=== PATIENT | female | born 1990 | race Hispanic/Latino ===

== ENCOUNTER 2019-02-09 17:45 | Emergency (ER) | payer BC, OTHER ==
[2019-02-09] MEDS ORDERED: NA CHLORIDE 0.9% 1,000 ML ONE ×2 (19:01→21:22)
[2019-02-09 19:02] LABS: Absolute Lymphocytes (CBC) 1.7 K/uL (0.7-4.9); Absolute Monocytes 0.6 K/uL (0.1-1.3); Absolute Neutrophil 6.3 K/uL (1.8-8.0); Basophils % 0.3 % (0-1.3); Eosinophils % 0.4 % (0-4.4); Hematocrit 41.5 % (36.0-45.0); Lymphocytes % 19.3 % (15.3-44.8); MPV 8.6 fL (7.6-11.3); Monocytes % 6.8 % (3.3-12.3); RBC Red Blood Cell Count 4.78 M/uL (3.86-4.86)
[2019-02-09 19:12] LABS: Urine Blood 3+ (NEG); Urine Glucose TRACE (NEG); Urine Protein 1+ (NEG)
[2019-02-09 19:24] LABS: Urine Bacteria <20 /HPF (<20); Urine Culture Reflex Order NOT NEEDED; Urine Mucus 3+ /HPF (NONE SEEN); Urine RBC <5 /HPF (NONE SEEN)
[2019-02-09 19:37] LABS: BUN Blood Urea Nitrogen 11 mg/dL (7-18); Bicarbonate 25 mmol/L (21-32); Glucose Level 92 mg/dL (74-106); HCG, Quantitative 69921 mIU/mL (1-3); Sodium Level 138 mmol/L (136-145)
[2019-02-09 19:39] LABS: Potassium 2.9 mmol/L (3.5-5.1)
[2019-02-09] MEDS ORDERED: POTASSIUM 25 MEQ EFFERV TAB ONE ×2 (19:56→23:06)
--- NOTE | 2019-02-09 20:45 | ER ---
Nurse's Notes [facility] Name: Cynthia Villarreal Age: 28 yrs Sex: Female : 1990 Arrival Date: 02/09/2019 Time: 17:47 Bed 15 Private MD: Diagnosis: Nausea and vomiting; related conditions, unspecified, first trimester;Hypokalemia Presentation: 02/09 17:48 Presenting complaint: Patient states: LMP- 12/14/18; im 8 weeks yesterday; i hj started having vaginal bleed today and been vomiting; reports nausea; denies fever and chills;. Transition of care: patient was not received from another setting of care. Onset of symptoms was February 09, 2019. Risk Assessment: Do you want to hurt yourself or someone else? Patient reports no desire to harm self or others. Initial Sepsis Screen: Does the patient meet any 2 criteria? No. Patient's initial sepsis screen is negative. Does the patient have a suspected source of infection? No. Patient's initial sepsis screen is negative. Care prior to arrival: None. 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 Denies injuries from another. Nutritional bp screening: No deficits noted. Tuberculosis screening: No symptoms or risk factors identified. Fall Risk None identified. Assessment: 18:00 General: Appears in no apparent distress. comfortable, Behavior is calm, cooperative, bp appropriate for age. Pain: Denies pain. Neuro: Level of Consciousness is awake, alert, obeys commands, Oriented to person, place, time, situation, Appropriate for age. Cardiovascular: No deficits noted. Respiratory: Airway is patent Respiratory effort is even, unlabored, Respiratory pattern is regular, symmetrical. GI: No signs and/or symptoms were reported involving the gastrointestinal system. : Reports vaginal bleeding that is. EENT: No deficits noted. Derm: No deficits noted. Musculoskeletal: Circulation, motion, and sensation intact. Range of motion: intact in all extremities. 19:05 Reassessment: Patient appears in no apparent distress at this time. Patient and/or jb4 family updated on plan of care and expected duration. Pain level reassessed. Patient is alert, oriented x 3, equal unlabored respirations, skin warm/dry/pink. family at the bedside. 20:00 Reassessment: Patient appears in no apparent distress at this time. Patient and/or jb4 family updated on plan of care and expected duration. Pain level reassessed. Patient is alert, oriented x 3, equal unlabored respirations, skin warm/dry/pink. 21:00 Reassessment: Patient appears in no apparent distress at this time. Patient and/or jb4 family updated on plan of care and expected duration. Pain level reassessed. Patient is alert, oriented x 3, equal unlabored respirations, skin warm/dry/pink. 21:05 Reassessment: Pt vomited after oral potassium was given, failed PO challenged, see [facility] maria guadalupe for orders. 22:00 Reassessment: Patient appears in no apparent distress at this time. Patient and/or jb4 family updated on plan of care and expected duration. Pain level reassessed. Patient is alert, oriented x 3, equal unlabored respirations, skin warm/dry/pink. 23:17 Reassessment: Patient appears in no apparent distress at this time. Patient and/or jb4 family updated on plan of care and expected duration. Pain level reassessed. Patient is alert, oriented x 3, equal unlabored respirations, skin warm/dry/pink. Patient states feeling better. Vital Signs: 17:50 BP 121 / 83; Pulse 80; Resp 18; Temp 98.1(O); Pulse Ox 98% on R/A; Weight 58.97 kg; hj Height 5 ft. 0 in. (152.40 cm); Pain 0/10; 19:15 BP 103 / 64; Pulse 67; Resp 16; Pulse Ox 100% ; jb4 20:00 BP 109 / 68; Pulse 91; Resp 16; Pulse Ox 100% on R/A; jb4 21:00 BP 114 / 67; Pulse 99; Resp 16; Pulse Ox 100% on R/A; jb4 22:00 BP 102 / 75; Pulse 73; Resp 16; Pulse Ox 100% on R/A; jb4 23:00 BP 100 / 80; Pulse 86; Resp 16; Pulse Ox 99% on R/A; jb4 17:50 Body Mass Index 25.39 (58.97 kg, 152.40 cm) ED Course: 17:47 Patient arrived in ED. as 17:49 Triage completed. hj 17:51 Arm band placed on right wrist. hj 18:00 Patient has correct armband on for positive identification. Bed in low position. Call bp light in reach. Side rails up X2. Adult w/ patient. 18:18 Zev Foster PA is PHCP. cp 18:18 Anuj Davalos MD is Attending Physician. cp 18:24 Jakob Hannah, KASI is Primary Nurse. bp 18:30 Inserted saline lock: 20 gauge in right antecubital area, using aseptic technique. bp Blood collected. 20:27 Primary Nurse role handed off by Jakob Hannah, RN ed1 20:30 Matt Kinsey, RN is Primary Nurse. jb4 20:31 Ultrasound completed. Patient tolerated well. Notified STAGECRAFT PROFESSOR/REAGAN nuñez. sg3 20:34 US Transvaginal Ob In Process Unspecified. EDMS 23:00 No provider procedures requiring assistance completed. IV discontinued, intact, jb4 bleeding controlled. Administered Medications: 18:45 Drug: NS 0.9% 1000 ml Route: IV; Rate: 1 bolus; Site: right antecubital; bp 19:55 Drug: Potassium Effervescent Tablet 50 mEq Route: PO; jb4 22:13 Follow up: Response: Vomiting increased; Vomiting increased, pt vomited after jb4 administration. 19:55 Drug: Potassium Effervescent Tablet 50 mEq Route: PO; jb4 22:12 Follow up: Response: Vomiting increased; Vomiting increased, pt vomited after jb4 administration. 21:10 Drug: Zofran 4 mg Route: IVP; Site: right antecubital; jb4 22:12 Follow up: Response: No adverse reaction; Nausea is decreased jb4 21:15 Drug: Potassium Chloride 20 mEq Route: IV; Rate: calculated rate; Site: right jb4 antecubital; 22:19 Follow up: Response: No adverse reaction; IV Status: Completed infusion jb4 21:15 Drug: NS 0.9% 1000 ml Route: IV; Rate: 1 bolus; Site: right antecubital; jb4 22:20 Follow up: Response: No adverse reaction; IV Status: Completed infusion; IV Intake: jb4 1000ml 22:59 Drug: Potassium Effervescent Tablet 50 mEq Route: PO; jb4 23:15 Follow up: Response: No adverse reaction jb4 Intake: 22:20 IV: 1000ml; Total: 1000ml. jb4 Outcome: 20:44 Discharge ordered by MD. cp 23:02 Discharge ordered by MD. cp 23:19 Discharged to home ambulatory, with family. jb4 23:19 Condition: stable 23:19 Discharge instructions given to patient, family, Instructed on discharge instructions, follow up and referral plans. medication usage, Demonstrated understanding of instructions, follow-up care, medications, Prescriptions given X 1. 23:19 Patient left the ED. jb4 Signatures: Dispatcher [employer] EDMS Gwendolyn Rutherford Erika, RN RN ed1 Kendell Olson RN RN Zev Yost PA PA cp Bryson, James, RN RN jb4 Jakob Hannah RN RN Nataliia Nogueira sg3 Corrections: (The following items were deleted from the chart) 17:52 17:50 Pulse 80bpm; Resp 18bpm; Pulse Ox 98% RA; Temp 98.1F Oral; 58.97 kg; Height 5 ft. hj 0 in.; BMI: 25.3; Pain 0/10; hj
--- NOTE | 2019-02-09 20:45 | EDPHYS ---
Physician Documentation [facility] Name: Cynthia Villarreal Age: 28 yrs Sex: Female : 1990 Arrival Date: 02/09/2019 Time: 17:47 Bed 15 Private MD: ED Physician Anuj Davalos HPI: 02/09 18:30 This 28 yrs old Female presents to ER via Ambulatory with complaints of cp Vaginal Bleeding, + Preg <12wks. 18:30 The patient presents to the emergency department with nausea and vomiting, that started cp today, and is intermittent, described as bilious, vaginal bleeding, that is light, started yesterday, now resolved. The estimated gestational age is 8 weeks. course: care: private OB physician, Leakage of Fluid: none appreciated, Ultrasound: the patient had an ultrasound. Associated signs and symptoms: Pertinent negatives: abdominal pain, diarrhea, dysuria, fever. 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 cp 18:40 Eyes: Negative for injury, pain, redness, and discharge. cp 18:40 ENT: Negative for drainage from ear(s), ear pain, sore throat, difficulty swallowing, difficulty handling secretions. 18:40 Cardiovascular: Negative for chest pain, edema, palpitations. 18:40 Respiratory: Negative for cough, shortness of breath, wheezing. 18:40 Abdomen/GI: Positive for nausea and vomiting, Negative for abdominal pain, diarrhea, constipation, hematemesis, black/tarry stool, rectal bleeding. 18:40 Back: Negative for pain at rest, pain with movement. 18:40 : Positive for vaginal bleeding, Negative for urinary symptoms, pelvic pain, flank pain. 18:40 Skin: Negative for rash. 18:40 Neuro: Negative for altered mental status, headache, numbness, tingling, weakness. 18:40 All other systems are negative. Exam: 18:45 Constitutional: The patient appears in no acute distress, alert, awake, non-toxic, well cp developed, well nourished. 18:45 Head/Face: Normocephalic, atraumatic. Eyes: Pupils equal round and reactive to light, cp extra-ocular motions intact. Lids and lashes normal. Conjunctiva and sclera are non-icteric and not injected. Cornea within normal limits. Periorbital areas with no swelling, redness, or edema. ENT: Nares patent. No nasal discharge, no septal abnormalities noted. Tympanic membranes are normal and external auditory canals are clear. Oropharynx with no redness, swelling, or masses, exudates, or evidence of obstruction, uvula midline. Mucous membranes moist. Chest/axilla: Normal chest wall appearance and motion. Nontender with no deformity. No lesions are appreciated. 18:45 Cardiovascular: Rate: normal, Rhythm: regular. 18:45 Respiratory: the patient does not display signs of respiratory distress, Respirations: normal, no use of accessory muscles, no retractions, no splinting, no tachypnea, labored breathing, is not present, Breath sounds: are clear throughout, no decreased breath sounds, no stridor, no wheezing. 18:45 Abdomen/GI: Inspection: abdomen appears normal, Bowel sounds: active, all quadrants, Palpation: abdomen is soft and non-tender, in all quadrants. 18:45 Back: CVA tenderness, is absent. 18:45 Skin: no rash present. 18:45 Neuro: Orientation: to person, place \T\ time. Mentation: is normal, Cerebellar function: is grossly normal, Motor: moves all fours, strength is normal. 20:35 ECG was reviewed by the Attending Physician. cp Vital Signs: 17:50 BP 121 / 83; Pulse 80; Resp 18; Temp 98.1(O); Pulse Ox 98% on R/A; Weight 58.97 kg; hj Height 5 ft. 0 in. (152.40 cm); Pain 0/10; 19:15 BP 103 / 64; Pulse 67; Resp 16; Pulse Ox 100% ; jb4 20:00 BP 109 / 68; Pulse 91; Resp 16; Pulse Ox 100% on R/A; jb4 21:00 BP 114 / 67; Pulse 99; Resp 16; Pulse Ox 100% on R/A; jb4 22:00 BP 102 / 75; Pulse 73; Resp 16; Pulse Ox 100% on R/A; jb4 23:00 BP 100 / 80; Pulse 86; Resp 16; Pulse Ox 99% on R/A; jb4 17:50 Body Mass Index 25.39 (58.97 kg, 152.40 cm) MDM: 18:24 Patient medically screened. cp 19:00 Differential diagnosis: STD, dehydration, electrolyte abnormality, UTI. cp 23:00 Data reviewed: vital signs, nurses notes, lab test result(s), EKG, radiologic studies, cp ultrasound. 23:00 Counseling: I had a detailed discussion with the patient and/or guardian regarding: the cp historical points, exam findings, and any diagnostic results supporting the discharge/admit diagnosis, lab results, radiology results, the need for outpatient follow up, an OB/Gyne specialist, to return to the emergency department if symptoms worsen or persist or if there are any questions or concerns that arise at home. Response to treatment: the patient's symptoms have markedly improved after treatment, VSS. Nausea markedly improved and potassium replaced. Will discharge to home for continued monitoring. 02/09 18:28 Order name: Quantitative Hcg; Complete Time: 19:54 cp 02/09 18:28 Order name: Abo/rh Typing; Complete Time: 19:39 cp 02/09 18:28 Order name: Basic Metabolic Panel; Complete Time: 19:54 cp 02/09 19:54 Interpretation: Normal except: K 2.9. cp 02/09 18:28 Order name: CBC with Diff; Complete Time: 19:39 cp 02/09 18:28 Order name: Urine Microscopic Only; Complete Time: 19:39 cp 02/09 18:51 Order name: Urine Dipstick--Ancillary (enter results); Complete Time: 19:39 eb 02/09 18:51 Order name: Urine --Ancillary (enter results); Complete Time: 19:39 eb 02/09 19:08 Order name: US Transvaginal Ob cp 02/09 20:48 Order name: ABO/RH no charge EDMS 02/09 22:19 Order name: Potassium jb4 02/09 17:52 Order name: Urine Dipstick-Ancillary (obtain specimen); Complete Time: 18:53 02/09 17:52 Order name: Urine Test (obtain specimen); Complete Time: 18:53 02/09 18:28 Order name: Urine Test (obtain specimen); Complete Time: 18:53 cp 02/09 18:28 Order name: IV Saline Lock; Complete Time: 18:53 cp 02/09 18:28 Order name: Labs collected and sent; Complete Time: 18:53 cp 02/09 18:28 Order name: NPO; Complete Time: 18:53 cp 02/09 19:40 Order name: EKG - Nurse/Tech; Complete Time: 20:30 cp 02/09 20:26 Order name: PO challenge; Complete Time: 20:30 cp EC:35 Rate is 85 beats/min. Rhythm is regular. ND interval is normal. QRS interval is normal. cp QT interval is normal. Interpreted by me. Reviewed by me. Administered Medications: 18:45 Drug: NS 0.9% 1000 ml Route: IV; Rate: 1 bolus; Site: right antecubital; bp 19:55 Drug: Potassium Effervescent Tablet 50 mEq Route: PO; jb4 22:13 Follow up: Response: Vomiting increased; Vomiting increased, pt vomited after jb4 administration. 19:55 Drug: Potassium Effervescent Tablet 50 mEq Route: PO; jb4 22:12 Follow up: Response: Vomiting increased; Vomiting increased, pt vomited after jb4 administration. 21:10 Drug: Zofran 4 mg Route: IVP; Site: right antecubital; jb4 22:12 Follow up: Response: No adverse reaction; Nausea is decreased jb4 21:15 Drug: Potassium Chloride 20 mEq Route: IV; Rate: calculated rate; Site: right jb4 antecubital; 22:19 Follow up: Response: No adverse reaction; IV Status: Completed infusion jb4 21:15 Drug: NS 0.9% 1000 ml Route: IV; Rate: 1 bolus; Site: right antecubital; jb4 22:20 Follow up: Response: No adverse reaction; IV Status: Completed infusion; IV Intake: jb4 1000ml 22:59 Drug: Potassium Effervescent Tablet 50 mEq Route: PO; jb4 23:15 Follow up: Response: No adverse reaction jb4 Disposition: 02/09/19 23:02 Discharged to Home. Impression: Nausea and vomiting, related conditions, unspecified, first trimester, Hypokalemia. - Condition is Stable. - Discharge Instructions: Abdominal Pain During , Potassium Content of Foods, Nausea and Vomiting, Adult, Hypokalemia. - Prescriptions for Diclegis 10- 10 mg Oral tablet,delayed release (DR/EC) - take 1 tablet by ORAL route as directed As needed 1 tablet before meals and 2 tablets at bedtime; 30 tablet. - Medication Reconciliation Form, Thank You Letter, Antibiotic Education, Prescription Opioid Use form. - Follow up: Private Physician; When: 2 - 3 days; Reason: Recheck today's complaints. - Problem is new. - Symptoms have improved. Addendum: 02/12/2019 07:25 Co-signature as Attending Physician, Anuj Davalos MD I agree with the assessment and k dr plan of care. Signatures: Dispatcher [employer] EDMS Anuj Davalos MD MD [facility] Kendell Olson RN RN hj Zev Foster PA PA cp Matt Kinsey, RN RN jb4 aJkob Hannah RN RN bp Corrections: (The following items were deleted from the chart) 02/09 20:48 20:44 02/09/2019 20:44 Discharged to Home. Impression: related conditions, cp unspecified, first trimester; Nausea and vomiting. Condition is Stable. Forms are Medication Reconciliation Form, Thank You Letter, Antibiotic Education, Prescription Opioid Use. Follow up: Private Physician; When: 2 - 3 days; Reason: Recheck today's complaints. Problem is new. Symptoms have improved. cp 20:58 20:48 02/09/2019 20:44 Discharged to Home. Impression: related conditions, cp unspecified, first trimester; Nausea and vomiting; Hypokalemia. Condition is Stable. Discharge Instructions: Abdominal Pain During , Dehydration, Adult, Nausea and Vomiting, Adult, Vaginal Bleeding During , First Trimester. Prescriptions for Diclegis 10-10 mg Oral tablet,delayed release (DR/EC) - take 1 tablet by ORAL route 3 times per day As needed 1 tablet before meals and 2 tablets at bedtime; 30 tablet. and Forms are Medication Reconciliation Form, Thank You Letter, Antibiotic Education, Prescription Opioid Use. Follow up: Private Physician; When: 2 - 3 days; Reason: Recheck today's complaints. Problem is new. Symptoms have improved. cp 23:03 23:02 02/09/2019 23:02 Discharged to Home. Impression: Nausea and vomiting; cp related conditions, unspecified, first trimester. Condition is Stable. Prescriptions for Diclegis 10-10 mg Oral tablet,delayed release (DR/EC) - take 1 tablet by ORAL route 3 times per day As needed 1 tablet before meals and 2 tablets at bedtime; 30 tablet. and Forms are Medication Reconciliation Form, Thank You Letter, Antibiotic Education, Prescription Opioid Use. Follow up: Private Physician; When: 2 - 3 days; Reason: Recheck today's complaints. Problem is new. Symptoms have improved. cp 23:19 23:03 02/09/2019 23:02 Discharged to Home. Impression: Nausea and vomiting; jb4 related conditions, unspecified, first trimester; Hypokalemia. Condition is Stable. Discharge Instructions: Abdominal Pain During , Nausea and Vomiting, Adult, Hypokalemia. Prescriptions for Diclegis 10-10 mg Oral tablet,delayed release (DR/EC) - take 1 tablet by ORAL route 3 times per day As needed 1 tablet before meals and 2 tablets at bedtime; 30 tablet, Diclegis 10-10 mg Oral tablet,delayed release (DR/EC) - take 1 tablet by ORAL route as directed As needed 1 tablet before meals and 2 tablets at bedtime; 30 tablet. and Forms are Medication Reconciliation Form, Thank You Letter, Antibiotic Education, Prescription Opioid Use. Follow up: Private Physician; When: 2 - 3 days; Reason: Recheck today's complaints. Problem is new. Symptoms have improved. cp
--- NOTE | 2019-02-09 20:58 | RAD REPORT ---
EXAM DESCRIPTION: US - Transvaginal OB - 02/09/2019 8:34 pm CLINICAL HISTORY: , vaginal bleeding COMPARISON: None. FINDINGS: A single intrauterine gestation is identified. Heart rate is 169 bpm. Small subchorionic h emorrhages present measuring 2.5 x 0.8 by 1.2 cm. This is not felt to be clinically significant at th is size but can be monitored as warranted. Cervical canal is closed. Gestational sac is normal in con figuration. Yolk sac is identified. Garnett-rump length measurement corresponds to a 8 W 0 D age. EPHRAIM i s 09/21/2019. A 14 millimeter anechoic left ovarian cyst is present. No suspicious ovarian or adnexal findings. No fluid, blood or other abnormality in the cul de sac. IMPRESSION: Single 8 W 0 D intrauterine gestation. EPHRAIM is 09/21/2019. A small subchorionic hemorrhage is present. Cervical canal is closed. Normal heart rate of 167 BPM.
[2019-02-09] MEDS ORDERED: ONDANSETRON 4 MG/2 ML VIAL ONE (21:21)
[2019-02-09] MEDS ORDERED: KCL 20 MEQ/100 mL IVPB 20 MEQ/100 ML BAG IV ONE (21:22)
--- NOTE | 2019-02-13 11:30 | EKG ---
Test Date: 2019-02-09 Test Time: 20:28:12 Director Of Archives: BRAYDON MEASUREMENT RESULTS: Intervals: Rate: 85 RI: 140 QRSD: 76 QT: 354 QTc: 421 Capron: P: 45 RI: 140 QRS: 9 T: 37 INTERPRETIVE STATEMENTS: Normal sinus rhythm with sinus arrhythmia Low voltage QRS Borderline ECG No previous ECG available for comparison Electronically Signed On 02-10-19 16:44:27 CDT by Miky Brown
== END 2019-02-09 23:19 | disposition home or self-care (01) ==
LOC: ER 17:45
DX: O20.9 Hemorrhage in early pregnancy, unspecified (principal); O21.9 Vomiting of pregnancy, unspecified; O26.891 Other specified pregnancy related conditions, first trimester; E87.6 Hypokalemia; Z3A.08 8 weeks gestation of pregnancy
CPT/HCPCS: 36415; 76817; 80048; 81003; 81015; 81025; 84132; 84702; 85025; 86900; 86901; 93005; 96365; 96375; 99284; J2405; J7030

== ENCOUNTER 2019-02-25 01:23 | Emergency (ER) | payer MEDICAID, OTHER ==
[2019-02-25 02:20] LABS: Absolute Lymphocytes (CBC) 1.3 K/uL (0.7-4.9); Absolute Monocytes 0.4 K/uL (0.1-1.3); Absolute Neutrophil 6.3 K/uL (1.8-8.0); Basophils % 0.5 % (0-1.3); Eosinophils % 0.4 % (0-4.4); Hematocrit 38.4 % (36.0-45.0); Lymphocytes % 16.5 % (15.3-44.8); MPV 8.4 fL (7.6-11.3); Monocytes % 4.5 % (3.3-12.3)
[2019-02-25 02:36] LABS: BUN Blood Urea Nitrogen 10 mg/dL (7-18); Bicarbonate 23 mmol/L (21-32); Glucose Level 91 mg/dL (74-106); Potassium 3.4 mmol/L (3.5-5.1); Sodium Level 140 mmol/L (136-145)
[2019-02-25] MEDS ORDERED: D5 0.9 NS 1,000 ML IV ONE ×2 (02:40→04:00)
[2019-02-25 03:58] LABS: Urine Bacteria <20 /HPF (<20); Urine Culture Reflex Order NOT NEEDED; Urine RBC NONE SEEN /HPF (NONE SEEN)
[2019-02-25 04:01] LABS: Urine Blood NEGATIVE (NEG); Urine Glucose 2+ (NEG); Urine Protein NEGATIVE (NEG); Urine pH 5.5 (5.0-7.0)
--- NOTE | 2019-02-25 04:08 | ER ---
Nurse's Notes [facility] Name: Cynthia Villarreal Age: 28 yrs Sex: Female : 1990 Arrival Date: 02/25/2019 Time: 01:25 Bed 13 Private MD: Diagnosis: Hyperemesis gravidarum with metabolic disturbance Presentation: 02/25 01:42 Presenting complaint: Patient states: I started vomiting today at 1245 pm. I am feeling jb4 dehydrated and have not been able to keep anything down. Transition of care: patient was not received from another setting of care. Onset of symptoms was February 24, 2019. Risk Assessment: Do you want to hurt yourself or someone else? Patient reports no desire to harm self or others. Initial Sepsis Screen: Does the patient meet any 2 criteria? No. Patient's initial sepsis screen is negative. Does the patient have a suspected source of infection? No. Patient's initial sepsis screen is negative. Care prior to arrival: None. 01:42 Method Of Arrival: Ambulatory jb4 01:42 Acuity: JEFFREY 3 jb4 Triage Assessment: 01:42 General: Appears in no apparent distress. comfortable, Behavior is calm, cooperative, jb4 appropriate for age. Pain: Denies pain. EENT: No signs and/or symptoms were reported regarding the EENT system. Neuro: Level of Consciousness is awake, alert, obeys commands, Oriented to person, place, time, situation. Cardiovascular: Patient's skin is warm and dry. Respiratory: Airway is patent Respiratory effort is even, unlabored, Respiratory pattern is regular, symmetrical. GI: Reports nausea, vomiting. : No signs and/or symptoms were reported regarding the genitourinary system. Derm: Skin is intact, Skin is pink, warm \T\ dry. Musculoskeletal: Circulation, motion, and sensation intact. 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 - Social history:: Smoking status: Patient/guardian denies using tobacco, Patient/guardian denies using alcohol. - Ebola Screening: : No symptoms or risks identified at this time. Screenin:26 Abuse screen: Denies threats or abuse. Denies injuries from another. Nutritional cc3 screening: No deficits noted. Tuberculosis screening: No symptoms or risk factors identified. Fall Risk Ambulatory Aid- None/Bed Rest/Nurse Assist (0 pts). Gait- Normal/Bed Rest/Wheelchair (0 pts) Mental Status- Oriented to own ability (0 pts). Assessment: 03:26 Reassessment: Patient appears in no apparent distress at this time. Patient and/or cc3 family updated on plan of care and expected duration. Pain level reassessed. Patient is alert, oriented x 3, equal unlabored respirations, skin warm/dry/pink. Received this female 10 weeks patient from [facility]AS[facility] Rahman as a case of dehydration, with IV cannula gauge 20 at the left ACV saline locked. 04:07 Reassessment: Patient was ordered for discharge home after the ongoing IV fluids. cc3 04:16 Reassessment: Patient appears in no apparent distress at this time. Patient and/or cc3 family updated on plan of care and expected duration. Pain level reassessed. Patient is alert, oriented x 3, equal unlabored respirations, skin warm/dry/pink. 05:10 Reassessment: Patient appears in no apparent distress at this time. Patient and/or cc3 family updated on plan of care and expected duration. Pain level reassessed. Patient is alert, oriented x 3, equal unlabored respirations, skin warm/dry/pink. IV fluids completed, patient discharged home with prescription given. IV cannula removed and patient left ER vitally stable and ambulatory with her . Patient denies pain at this time. Patient states feeling better. Patient states symptoms have improved. Vital Signs: 01:42 BP 112 / 75; Pulse 72; Resp 16; Temp 98.7(O); Pulse Ox 99% on R/A; Weight 60.33 kg (R); jb4 Height 5 ft. 0 in. (152.40 cm) (R); Pain 0/10; 03:30 BP 101 / 59; Pulse 80; Resp 17 S; Pulse Ox 100% on R/A; cc3 04:17 BP 112 / 66; Pulse 65; Resp 17 S; Pulse Ox 100% on R/A; cc3 05:00 BP 101 / 64; Pulse 70; Resp 15 S; Pulse Ox 100% on R/A; cc3 01:42 Body Mass Index 25.97 (60.33 kg, 152.40 cm) jb4 ED Course: 01:25 Patient arrived in ED. 01:31 Landon Landry MD is Attending Physician. 01:41 Matt Kinsey RN is Primary Nurse. jb4 01:42 Arm band placed on left wrist. jb4 01:43 Triage completed. jb4 03:26 Patient has correct armband on for positive identification. Placed in gown. Bed in low cc3 position. Side rails up X 1. Pulse ox on. NIBP on. 05:10 No provider procedures requiring assistance completed. cc3 05:10 IV discontinued, intact, bleeding controlled, No redness/swelling at site. Pressure cc3 dressing applied. Administered Medications: 02:31 Drug: D5-NS 1000 ml Route: IV; Rate: bolus; Site: left antecubital; jb4 03:25 Follow up: Response: No adverse reaction; IV Status: Completed infusion; IV Intake: cc3 1000ml 03:50 Drug: D5-NS 1000 ml Route: IV; Rate: bolus; Site: left antecubital; cc3 05:05 Follow up: Response: No adverse reaction; IV Status: Completed infusion; IV Intake: cc3 1000ml Intake: 03:25 IV: 1000ml; Total: 1000ml. cc3 05:05 IV: 1000ml; Total: 2000ml. cc3 Outcome: 04:07 Discharge ordered by . 05:10 Discharged to home ambulatory, with family. cc3 05:10 Condition: stable 05:10 Discharge instructions given to patient, Instructed on discharge instructions, follow up and referral plans. medication usage, Demonstrated understanding of instructions, follow-up care, medications, Prescriptions given X 1. 05:12 Patient left the ED. cc3 Signatures: Stefany Zavaleta Matt Kinsey, KASI RN jb4 Landon Landry MD MD gs Cordel, Charlene cc3
--- NOTE | 2019-02-25 04:08 | EDPHYS ---
Physician Documentation [facility] Name: Cynthia Villarreal Age: 28 yrs Sex: Female : 1990 Arrival Date: 02/25/2019 Time: 01:25 Bed 13 Private MD: ED Physician Landon Landry HPI: 02/25 04:05 This 28 yrs old Female presents to ER via Ambulatory with complaints of gs dehydrated 10 weeks preg. 04:05 The patient presents to the emergency department with nausea, vomiting. Onset: The gs symptoms/episode began/occurred 2 month(s) ago. Possible causes: . The symptoms are aggravated by nothing. The symptoms are alleviated by nothing. Associated signs and symptoms: Pertinent negatives: abdominal pain, dysuria, fever. Severity of symptoms: At their worst the symptoms were severe in the emergency department the symptoms are unchanged. The patient has experienced similar episodes in the past, multiple times. The patient has not recently seen a physician. 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 - Social history:: Smoking status: Patient/guardian denies using tobacco, Patient/guardian denies using alcohol. - Ebola Screening: : No symptoms or risks identified at this time. ROS: 04:05 All other systems are negative. gs Exam: 04:05 Head/Face: Normocephalic, atraumatic. Eyes: Pupils equal round and reactive to light, gs extra-ocular motions intact. Lids and lashes normal. Conjunctiva and sclera are non-icteric and not injected. Cornea within normal limits. Periorbital areas with no swelling, redness, or edema. ENT: Nares patent. No nasal discharge, no septal abnormalities noted. Tympanic membranes are normal and external auditory canals are clear. Oropharynx with no redness, swelling, or masses, exudates, or evidence of obstruction, uvula midline. Mucous membranes moist. Neck: Trachea midline, no thyromegaly or masses palpated, and no cervical lymphadenopathy. Supple, full range of motion without nuchal rigidity, or vertebral point tenderness. No Meningismus. Chest/axilla: Normal chest wall appearance and motion. Nontender with no deformity. No lesions are appreciated. Cardiovascular: Regular rate and rhythm with a normal S1 and S2. No gallops, murmurs, or rubs. Normal PMI, no JVD. No pulse deficits. Respiratory: Lungs have equal breath sounds bilaterally, clear to auscultation and percussion. No rales, rhonchi or wheezes noted. No increased work of breathing, no retractions or nasal flaring. Abdomen/GI: Soft, non-tender, with normal bowel sounds. No distension or tympany. No guarding or rebound. No evidence of tenderness throughout. Back: No spinal tenderness. No costovertebral tenderness. Full range of motion. Skin: Warm, dry with normal turgor. Normal color with no rashes, no lesions, and no evidence of cellulitis. MS/ Extremity: Pulses equal, no cyanosis. Neurovascular intact. Full, normal range of motion. Neuro: Awake and alert, GCS 15, oriented to person, place, time, and situation. Cranial nerves II-XII grossly intact. Motor strength 5/5 in all extremities. Sensory grossly intact. Cerebellar exam normal. Normal gait. 04:05 Constitutional: The patient appears alert, awake, uncomfortable. Vital Signs: 01:42 BP 112 / 75; Pulse 72; Resp 16; Temp 98.7(O); Pulse Ox 99% on R/A; Weight 60.33 kg (R); jb4 Height 5 ft. 0 in. (152.40 cm) (R); Pain 0/10; 03:30 BP 101 / 59; Pulse 80; Resp 17 S; Pulse Ox 100% on R/A; cc3 04:17 BP 112 / 66; Pulse 65; Resp 17 S; Pulse Ox 100% on R/A; cc3 05:00 BP 101 / 64; Pulse 70; Resp 15 S; Pulse Ox 100% on R/A; cc3 01:42 Body Mass Index 25.97 (60.33 kg, 152.40 cm) jb4 MDM: 01:47 Patient medically screened. gs 04:05 Differential diagnosis: dehydration,HE. Data reviewed: vital signs, nurses notes, lab gs test result(s). Counseling: I had a detailed discussion with the patient and/or guardian regarding: the historical points, exam findings, and any diagnostic results supporting the discharge/admit diagnosis, the need for outpatient follow up. Response to treatment: the patient's symptoms have markedly improved after treatment, the patient's condition has returned to base line, and as a result, I will discharge patient. 02/25 01:41 Order name: Urine Microscopic Only; Complete Time: 04:03 02/25 01:41 Order name: CBC with Diff; Complete Time: 03:09 02/25 01:41 Order name: Basic Metabolic Panel; Complete Time: 03:09 02/25 03:48 Order name: Urine Dipstick--Ancillary (enter results); Complete Time: 04:03 [facility] 02/25 03:52 Order name: Urine --Ancillary (enter results); Complete Time: 04:03 [facility] 02/25 01:41 Order name: Urine Dipstick-Ancillary (obtain specimen); Complete Time: 03:42 Administered Medications: 02:31 Drug: D5-NS 1000 ml Route: IV; Rate: bolus; Site: left antecubital; jb4 03:25 Follow up: Response: No adverse reaction; IV Status: Completed infusion; IV Intake: cc3 1000ml 03:50 Drug: D5-NS 1000 ml Route: IV; Rate: bolus; Site: left antecubital; cc3 05:05 Follow up: Response: No adverse reaction; IV Status: Completed infusion; IV Intake: cc3 1000ml Disposition: 02/25/19 04:07 Discharged to Home. Impression: Hyperemesis gravidarum with metabolic disturbance. - Condition is Stable. - Discharge Instructions: Hyperemesis Gravidarum. - Prescriptions for Zofran 4 mg Oral Tablet - take 1 tablet by ORAL route every 12 hours As needed; 20 tablet. - Medication Reconciliation Form, Thank You Letter, Antibiotic Education, Prescription Opioid Use form. - Follow up: Private Physician; When: 2 - 3 days; Reason: Re-evaluation by your physician. Signatures: Dispatcher [employer] Matt Cope RN RN jb4 Landon Landry MD MD gs Cordel, Charlene cc3 Corrections: (The following items were deleted from the chart) 03:53 03:48 URINE --ANCILLARY+UC.LAB.BRZ ordered. EDMS EDMS 05:12 04:07 02/25/2019 04:07 Discharged to Home. Impression: Hyperemesis gravidarum with cc3 metabolic disturbance. Condition is Stable. Forms are Medication Reconciliation Form, Thank You Letter, Antibiotic Education, Prescription Opioid Use. Follow up: Private Physician; When: 2 - 3 days; Reason: Re-evaluation by your physician. gs
== END 2019-02-25 05:12 | disposition home or self-care (01) ==
LOC: ER 01:23
DX: O21.1 Hyperemesis gravidarum with metabolic disturbance (principal); Z3A.10 10 weeks gestation of pregnancy
CPT/HCPCS: 36415; 80048; 81003; 81015; 81025; 85025; 96360; 96361; 99283

== ENCOUNTER 2019-09-30 20:38 | Emergency (ER) | payer MEDICAID ==
--- OUTSIDE RECORDS SUMMARY | 2019-09-30 20:42 | XMS REPORT ---
:1990 [facility] Address [address] [place] [address] [address] [place] [address] Care Team Providers Name Role Phone Tyler Gigi Melendez Unavailable Unavailable Problems This patient has no known problems. Allergies, Adverse Reactions, Alerts This patient has no known allergies or adverse reactions. Medications This patient has no known medications. Encounters Start End Encounter Admission Attending Care Care Encounter Date/Time Date/Time Type Type Clinicians Facility Department ID 2019-09-13 2019-09-13 Outpatient CANDI Scott [id number] 13:42:00 13:42:00 [facility] 2019-09-10 2019-09-10 Outpatient CANDI ScottN [id number] 10:16:00 10:16:00 [facility] 2019-09-03 2019-09-03 Outpatient CANDI Scott [id number] 08:40:00 08:40:00 [facility] 2019-08-28 2019-08-28 Outpatient CANDI ScottGYYury [id number] 13:28:00 13:28:00 [facility] 2019-08-28 2019-08-28 Outpatient CANDI ScottGYYury [id number] 10:17:00 10:17:00 [facility] 2019-08-20 2019-08-20 Outpatient CANDI ScottGYN [id number] 08:40:00 08:40:00 [facility] 2019-08-06 2019-08-06 Outpatient CANDI Scott [id number] 09:48:00 09:48:00 [facility] 2019-07-23 2019-07-23 Outpatient CANDI ScottGYYury [id number] 10:03:00 10:03:00 [facility] 2019-07-10 2019-07-10 Outpatient CODI ScottYury CHRISTOPHER [id number] 11:31:00 11:31:00 [facility] 2019-06-11 2019-06-11 Outpatient CODI ScottYury CHRISTOPHER [id number] 11:25:00 11:25:00 [facility] 2019-05-09 2019-05-09 Outpatient KIKI ScottSAMNAELYury CHRISTOPHER [id number] 10:55:00 10:55:00 [facility] 2019-04-09 2019-04-09 Outpatient KIKI ScottSAMNAELYury CHRISTOPHER [id number] 11:28:00 11:28:00 [facility] 2019-03-12 2019-03-12 Outpatient Tyler CANDI CHRISTOPHER [id number] 10:00:00 10:00:00 [facility]
[2019-09-30 21:15] LABS: Urine Blood 2+ (NEG); Urine Glucose NEGATIVE (NEG); Urine Protein NEGATIVE (NEG); Urine Specific Gravity 1.025 (1.005-1.030); Urine pH 5.5 (5.0-7.0)
[2019-09-30 21:26] LABS: Urine Bacteria 20-50 /HPF (<20); Urine Culture Reflex Order REFLEXED; Urine RBC TNTC /HPF (NONE SEEN)
--- NOTE | 2019-09-30 21:39 | EDPHYS ---
Physician Documentation [facility] Name: Cynthia Villarreal Age: 29 yrs Sex: Female : 1990 Arrival Date: 09/30/2019 Time: 20:50 Bed 7 Private MD: ED Physician Marcelino Perdomo HPI: 09/30 21:21 This 29 yrs old Female presents to ER via Ambulatory with complaints of Back kb Pain. 21:21 The pain does not radiate. Associated signs and symptoms: The patient has no apparent kb associated signs or symptoms. The problem was sustained without known cause. Modifying factors: The patient symptoms are alleviated by nothing, the patient symptoms are aggravated by nothing. Severity of symptoms: At their worst the symptoms were mild, moderate, in the emergency department the symptoms are unchanged. The patient has not experienced similar symptoms in the past. The patient has not recently seen a physician. 21:22 The patient presents with pain that is acute, with no known mechanism of injury. The kb symptoms are located in the left subscapular area and right subscapular area. Onset: The symptoms/episode began/occurred 6 day(s) ago. Pt describes back spasms that started Tuesday and have been intermittent. No has a constant pain in same spot that started at 1800. Recent vaginal delivery. No urinary symptoms, chest pain or shortness of breath. 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 - Social history:: Smoking status: Patient/guardian denies using tobacco. - Ebola Screening: : No symptoms or risks identified at this time. ROS: 21:19 Constitutional: Negative for fever, chills, and weight loss, ENT: Negative for injury, kb pain, and discharge, Neck: Negative for injury, pain, and swelling, Cardiovascular: Negative for chest pain, palpitations, and edema, Respiratory: Negative for shortness of breath, cough, wheezing, and pleuritic chest pain, Abdomen/GI: Negative for abdominal pain, nausea, vomiting, diarrhea, and constipation, : Negative for injury, bleeding, discharge, and swelling, MS/Extremity: Negative for injury and deformity, Skin: Negative for injury, rash, and discoloration, Neuro: Negative for headache, weakness, numbness, tingling, and seizure. 21:19 Back: Positive for pain at rest, of the left subscapular area and right subscapular area. Exam: 21:19 Constitutional: This is a well developed, well nourished patient who is awake, alert, kb and in no acute distress. Head/Face: Normocephalic, atraumatic. ENT: Nares patent. No nasal discharge, no septal abnormalities noted. Tympanic membranes are normal and external auditory canals are clear. Oropharynx with no redness, swelling, or masses, exudates, or evidence of obstruction, uvula midline. Mucous membranes moist. Neck: Trachea midline, no thyromegaly or masses palpated, and no cervical lymphadenopathy. Supple, full range of motion without nuchal rigidity, or vertebral point tenderness. No Meningismus. Chest/axilla: Normal chest wall appearance and motion. Nontender with no deformity. No lesions are appreciated. Cardiovascular: Regular rate and rhythm with a normal S1 and S2. No gallops, murmurs, or rubs. Normal PMI, no JVD. No pulse deficits. Respiratory: Lungs have equal breath sounds bilaterally, clear to auscultation and percussion. No rales, rhonchi or wheezes noted. No increased work of breathing, no retractions or nasal flaring. Abdomen/GI: Soft, non-tender, with normal bowel sounds. No distension or tympany. No guarding or rebound. No evidence of tenderness throughout. Skin: Warm, dry with normal turgor. Normal color with no rashes, no lesions, and no evidence of cellulitis. MS/ Extremity: Pulses equal, no cyanosis. Neurovascular intact. Full, normal range of motion. Neuro: Awake and alert, GCS 15, oriented to person, place, time, and situation. Cranial nerves II-XII grossly intact. Motor strength 5/5 in all extremities. Sensory grossly intact. Cerebellar exam normal. Normal gait. 21:19 Back: pain, that is mild, of the left subscapular area and right subscapular area, ROM is normal, normal spinal alignment noted. Vital Signs: 21:00 BP 139 / 84; Pulse 78; Resp 18; Temp 98.6(O); Pulse Ox 100% on R/A; Weight 68.04 kg; tl2 Height 5 ft. 0 in. (152.40 cm); Pain 8/10; 21:49 BP 116 / 74; Pulse 75; Resp 17; Temp 97.8; Pulse Ox 99% on R/A; rr5 21:00 Body Mass Index 29.29 (68.04 kg, 152.40 cm) tl2 MDM: 21:03 Patient medically screened. tw4 21:18 Data reviewed: vital signs, nurses notes. Data interpreted: Pulse oximetry: on room air kb is 100 %. Interpretation: normal. Counseling: I had a detailed discussion with the patient and/or guardian regarding: the historical points, exam findings, and any diagnostic results supporting the discharge/admit diagnosis, lab results, the need for outpatient follow up, a family practitioner, to return to the emergency department if symptoms worsen or persist or if there are any questions or concerns that arise at home. 09/30 21:11 Order name: Urine Microscopic Only; Complete Time: 21:36 rr5 09/30 21:13 Order name: Urine Dipstick--Ancillary (enter results); Complete Time: 21:16 cm6 09/30 21:13 Order name: Urine --Ancillary (enter results); Complete Time: 21:16 cm6 09/30 21:28 Order name: Urine Culture EDMS Administered Medications: No medications were administered Disposition: 10/01 05:00 Co-signature as Attending Physician, Marcelino Perdomo MD I agree with the assessment and 4 plan of care. Disposition: 09/30/19 21:38 Discharged to Home. Impression: Urinary tract infection, site not specified, Mid back pain with spasms. - Condition is Stable. - Discharge Instructions: Urinary Tract Infection, Adult, [id number]. - Prescriptions for Amoxicillin 875 mg Oral Tablet - take 1 tablet by ORAL route every 12 hours for 7 days; 14 tablet. - Medication Reconciliation Form, Thank You Letter, Antibiotic Education, Prescription Opioid Use form. - Follow up: Emergency Department; When: As needed; Reason: Worsening of condition. Follow up: Private Physician; When: 2 - 3 days; Reason: Recheck today's complaints, Continuance of care, Re-evaluation by your physician. Signatures: Dispatcher [employer] EDAngela Wooten, DRY DIP WORKER-C DRY DIP WORKER-Pricila Cotton, RN RN tl2 Marcelino Perdomo MD MD tw4 Jean Paul Freitas, RN RN rr5 Corrections: (The following items were deleted from the chart) 09/30 21:23 21:22 Pt describes back spasms that started Tuesday and have been intermittent. No has kb a constant pain in same spot that started at 1800.. kb 21:50 21:38 09/30/2019 21:38 Discharged to Home. Impression: Urinary tract infection, site rr5 not specified; Mid back pain with spasms. Condition is Stable. Forms are Medication Reconciliation Form, Thank You Letter, Antibiotic Education, Prescription Opioid Use. Follow up: Emergency Department; When: As needed; Reason: Worsening of condition. Follow up: Private Physician; When: 2 - 3 days; Reason: Recheck today's complaints, Continuance of care, Re-evaluation by your physician. kb
--- NOTE | 2019-09-30 21:39 | ER ---
Nurse's Notes [facility] Name: Cynthia Villarreal Age: 29 yrs Sex: Female : 1990 Arrival Date: 09/30/2019 Time: 20:50 Bed 7 Private MD: Diagnosis: Urinary tract infection, site not specified;Mid back pain with spasms Presentation: 09/30 20:58 Presenting complaint: Patient states: GEORGETTE lower back pain intermittent since Tuesday tl2 but would go away without medication. Pain worse tonight. Denies urinary symptoms. Reports having a baby 2 weeks ago, normal delivery no complications. Transition of care: patient was not received from another setting of care. Onset of symptoms was September 25, 2019. Risk Assessment: Do you want to hurt yourself or someone else? Patient reports no desire to harm self or others. Initial Sepsis Screen: Does the patient meet any 2 criteria? No. Patient's initial sepsis screen is negative. Does the patient have a suspected source of infection? No. Patient's initial sepsis screen is negative. Care prior to arrival: None. 20:58 Method Of Arrival: Ambulatory tl2 20:58 Acuity: JEFFREY 3 tl2 Triage Assessment: 21:00 General: Appears in no apparent distress. uncomfortable, Behavior is calm, cooperative, tl2 appropriate for age. 21:00 Pain: Complains of pain in left mid back and right mid back. tl2 [employer]: 21:00 LMP N/A - Recent tl2 Historical: - Allergies: 21:00 No Known Allergies; tl2 - Home Meds: 21:00 None [Active]; tl2 - PMHx: 21:00 Anemia; tl2 - PSHx: 21:00 None; tl2 - Immunization history:: Adult Immunizations up to date. - Social history:: Smoking status: Patient/guardian denies using tobacco. - Ebola Screening: : No symptoms or risks identified at this time. Screenin:01 Abuse screen: Denies threats or abuse. Denies injuries from another. Nutritional rr5 screening: No deficits noted. Tuberculosis screening: No symptoms or risk factors identified. Fall Risk None identified. Total Garay Fall Scale indicates No Risk (0-24 pts). 21:01 Abuse screen: Denies threats or abuse. Nutritional screening: No deficits noted. tl2 Tuberculosis screening: No symptoms or risk factors identified. Fall Risk None identified. Assessment: 21:00 General: Appears in no apparent distress. uncomfortable, Behavior is calm, cooperative, rr5 appropriate for age. Pain: Complains of pain in left low back and right low back Pain does not radiate. Pain currently is 8 out of 10 on a pain scale. Quality of pain is described as aching, Pain began gradually, Is intermittent. Neuro: Level of Consciousness is awake, alert, obeys commands, Oriented to person, place, time, situation, Appropriate for age. 21:00 Cardiovascular: Capillary refill < 3 seconds is brisk Patient's skin is warm and dry. rr5 Respiratory: Airway is patent Respiratory effort is even, unlabored, Respiratory pattern is regular, symmetrical. GI: No signs and/or symptoms were reported involving the gastrointestinal system. : Reports recently gave 2 weeks ago. EENT: No signs and/or symptoms were reported regarding the EENT system. Derm: Skin is intact, Skin temperature is warm. Musculoskeletal: Circulation, motion, and sensation intact. Capillary refill < 3 seconds, Reports pain in left low back and right low back. 21:48 Reassessment: Patient appears in no apparent distress at this time. Patient is alert, rr5 oriented x 3, equal unlabored respirations, skin warm/dry/pink. discharge instruction given and explained without complaints made. Vital Signs: 21:00 BP 139 / 84; Pulse 78; Resp 18; Temp 98.6(O); Pulse Ox 100% on R/A; Weight 68.04 kg; tl2 Height 5 ft. 0 in. (152.40 cm); Pain 8/10; 21:49 BP 116 / 74; Pulse 75; Resp 17; Temp 97.8; Pulse Ox 99% on R/A; rr5 21:00 Body Mass Index 29.29 (68.04 kg, 152.40 cm) tl2 ED Course: 20:50 Patient arrived in ED. cf2 20:55 Jean Palu Freitas RN is Primary Nurse. rr5 20:59 Triage completed. tl2 21:00 Arm band placed on right wrist. tl2 21:01 Patient has correct armband on for positive identification. Bed in low position. Call rr5 light in reach. 21:02 Marcelino Perdomo MD is Attending Physician. tw4 21:03 [facility] kb 21:49 No provider procedures requiring assistance completed. Patient did not have IV access rr5 during this emergency room visit. Administered Medications: No medications were administered Outcome: 21:38 Discharge ordered by . kb 21:49 Discharged to home ambulatory, with family. rr5 21:49 Condition: stable 21:49 Discharge instructions given to patient, Instructed on discharge instructions, follow up and referral plans. medication usage, Demonstrated understanding of instructions, follow-up care, medications, Prescriptions given X 1. 21:50 Patient left the ED. rr5 Signatures: Angela Mercado FNP-C FNP-Ckb Knox, Taylor RN RN tl2 Marcelino Perdomo MD MD tw4 Jean Paul Freitas RN RN rr5 Grace Zhong 2
[2019-09-30 22:27] VITALS: BP 116/74; TEMP 97.8; O2SAT 99
== END 2019-09-30 21:50 | disposition home or self-care (01) ==
LOC: ER 20:38
DX: N39.0 Urinary tract infection, site not specified (principal); M62.830 Muscle spasm of back
CPT/HCPCS: 81003; 81015; 81025; 87086; 87088; 99282